=== PATIENT | male | born 1935 | race Caucasian/White ===

== ENCOUNTER → 2017-03-04 07:52 | Day surgery (SDC) | payer MEDICARE, BC ==
--- NOTE | 2017-02-26 22:22 | HP ---
CC: Flor Min MD, [place], [place] * ADMITTING HISTORY AND PHYSICAL: DATE OF ADMISSION: 03/04/17 SURGEON: Sam Beth MD ADMITTING DIAGNOSIS: Bladder tumors. PLANNED PROCEDURE: Transurethral resection of bladder tumor, left stent insertion. 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 PAST MEDICAL HISTORY: Significant for: 1. BPH. 2. Diabetes mellitus. 3. Hyperlipidemia. 4. Hypertension. 5. Chronic mild leukopenia. 6. Mild thrombocytopenia. 7. Chronic kidney disease. 8. History of skin cancer. MEDICATIONS ON ADMISSION: Include: 1. Aspirin 81 mg a day. 2. Vitamin D3 2000 units daily. 3. Finasteride 5 mg a day. 4. Glipizide 5 mg one and a half tablets twice a day. 5. Irbesartan 300 mg daily. 6. Simvastatin 20 mg daily. 7. Terazosin 10 mg daily. ALLERGIES: TETANUS. PHYSICAL EXAMINATION GENERAL: Reveals a pleasant, elderly gentleman. VITAL SIGNS: Blood pressure is 130/80, pulse 69 per minute regular, oxygen saturation 97% on room air. LUNGS: Clear bilaterally. CARDIOVASCULAR: Regular rate and rhythm. S1, S2. ABDOMEN: Soft without masses. IMPRESSION: An 81-year-old gentleman with bladder tumors adjacent to the left orifice and several large blood vessels in close proximity to the tumors. PLANNED PROCEDURE: Left stent insertion and transurethral resection of bladder tumor. [id number]/CPS #: [id number] [facility]
[~2017-03-04 07:52] MED LIST: Acetaminophen TAB* 325 MG ONE; Acetaminophen TAB* 325 MG PO PRN; Buffered Lidocaine 0.9% SYRIN* 5 ML/SYR SYRINGE INTRADERM ONE; Buffered Lidocaine 0.9% SYRIN* 5 ML/SYR SYRINGE ONE; Chloroprocaine 2%* 20 ML VIAL ONE; Furosemide IV* 10 MG/ML 2 ML VIAL (20 MG) ONE; Iohexol 180 (CONTRAST) 10 ML SDV IV ONE; Lidocaine 2% JELLY* 6 ML JELLY TOPICAL ONE; Midazolam* 1 MG/ML 2 ML VIAL (2 MG) ONE; Ondansetron INJ* 2 MG/ML VIAL IV PRN; Ondansetron ODT TAB* 4 MG ONE; Propofol* 10 MG/ML 20 ML BTL IV PUSH ONE; cefTRIAXone(*) 2 GM ADDV.VIAL IVPB ONE; fentaNYL* 50 MCG/ML 2 ML VIAL (100 MCG VIAL) ONE; oxyCODONE TAB* 5 MG TAB ONE; oxyCODONE/Acetamin 5/325 MG* TAB ONE
--- NOTE | 2017-03-04 10:10 | RAD ---
INDICATION: LEFT ureteral stent placement. Bladder tumor. COMPARISON: No relevant prior exams available on the [facility] PACS for comparison. TECHNIQUE: 9 seconds fluoroscopy. FINDINGS: LEFT retrograde pyelogram is negative for pelvic caliectasis. LEFT ureteral stent placed. IMPRESSION: Procedural fluoroscopy. CPT II Codes: 6045F
[2017-03-04 13:37] VITALS: BP 169/78
--- NOTE | 2017-03-05 04:09 | OP ---
CC: Dr. Flor [place]Hun[place]ell, [place] * DATE OF OPERATION: 03/04/17 - [facility] DATE OF : 35 SURGEON: Sam Beth MD ANESTHESIOLOGIST: Dr. Lazo. ANESTHESIA: Spinal. PRE-OP DIAGNOSES: 1. Hematuria. 2. Bladder tumor. POST-OP DIAGNOSES: 1. Hematuria. 2. Bladder tumor. 3. Enlarged prostate. OPERATIVE PROCEDURE: 1. Cystoscopy, transurethral resection and fulguration of bladder tumor (2 to 3 cm). 2. Left retrograde and left stent insertion. COMPLICATIONS: None. BLOOD LESS: Less than 50 cc. OPERATIVE FINDINGS: 1. Very large vascular obstructing prostate. 2. Superficial-appearing tumor above left orifice. 3. Normal retrograde pyelogram. STENT USED: 6-Lithuanian stent, left ureter. POSTOPERATIVE CONDITION: Stable. INDICATIONS: Chapo Salvador is an 81-year-old gentleman who was noted on office cystoscopy to have what appears to be a superficial bladder cancer. DESCRIPTION OF PROCEDURE: After induction of spinal anesthesia, the patient was placed in dorsal lithotomy position. Sequential compression devices were in place and functioning. Initial cystoscopy revealed a normal-appearing urethra, a very large and very vascular obstructing prostate. The bladder was examined. There was a superficial-appearing papillary tumor above the left orifice and there were several very large veins in the vicinity of this tumor. There were some additional lesions adjacent to it. A left retrograde pyelogram did not reveal any persistent filling defects or any obstruction. A 6-Lithuanian stent was introduced and positioned under fluoroscopic monitoring in an effort to protect the intramural portion of the ureter given the removal of the tumor. Next, veterans service representative biopsies were obtained and sent for histopathology. Resectoscope was then introduced and all of the visible tumor was resected down to muscle. Because of the very large vascular prostate and the very large veins that were adjacent to the tumor, I had to spend a considerable amount of time with the electrocautery trying to cauterize these blood vessels. Once this was done, a 22- Lithuanian Echevarria was placed without difficulty and connected to a drainage bag, patient tolerated the procedure satisfactorily and was transferred back to recovery area in stable condition. [id number]/CPS #: [id number] [facility]ITALHelen
== END | disposition home or self-care (01) ==
LOC: OR 07:52
PROVIDERS: ATTEND Urology
DX: C67.9 Malignant neoplasm of bladder, unspecified (principal); N40.1 Benign prostatic hyperplasia with lower urinary tract symptoms; N13.8 Other obstructive and reflux uropathy; E11.9 Type 2 diabetes mellitus without complications; E78.5 Hyperlipidemia, unspecified; N18.9 Chronic kidney disease, unspecified; D69.6 Thrombocytopenia, unspecified; I12.9 Hypertensive chronic kidney disease with stage 1 through stage 4 chronic kidney disease, or unspecified chronic kidney disease
CPT/HCPCS: 74420; 88305; A9270-GY; C1876; J0696; J1940; J2250; J2400; J2704; J3010